=== PATIENT | female | born 1945 | race Caucasian/White ===

== ENCOUNTER 2024-12-30 13:44 | Inpatient (IN) ==
--- NOTE | 2024-12-30 14:34 | Emergency Department Note ---
History of Present Illness General Chief complaint: Illness Stated complaint: FLU, MUSCLE WEAKNESS Time Seen by Provider: 12/30/24 14:20 History of Present Illness Provider complaint: Weakness Maximum Pain Intensity: 10 79-year-old female presents emergency department for weakness. Patient reports she has been having cough and fatigue for the last week. Patient states she was diagnosed with influenza and a UTI 1 week ago. Patient does report taking Keflex for UTI. She states since Saturday she has been having increasing weakness and myalgias. Patient is on Eliquis for history of a pulmonary embolus. No falls or traumas. Home Medications Medication Instructions Recorded Confirmed Type apixaban 5 mg tablet (Eliquis) 5 mg PO BID 12/30/24 12/30/24 History calcium carbonate (Calcium 600) 1,200 mg PO DAILY 12/30/24 12/30/24 History levothyroxine 88 mcg tablet 88 mcg PO QAM 12/30/24 12/30/24 History Allergies Allergy/AdvReac Type Severity Reaction Status Date / Time amoxicillin Allergy Unverified 12/25/23 14:44 Past Med/Surg History Problem List (Updated 12/30/24 @ 17:25 by Ben Simmons MD) Elevated troponin (Acute) Rhabdomyolysis (Acute) Sepsis (Acute) Osteoarthritis of carpometacarpal (CMC) joint of right thumb Medical History (Updated 12/30/24 @ 17:25 by Ben Simmons MD) Hypothyroid Pulmonary embolus Social History Smoking Status: Former smoker Preferred Language: Estonian Feels Safe at Home: Yes Physical Exam Vital Signs Vital Signs - 24 hr 12/30/24 14:01 12/30/24 14:48 12/30/24 14:48 Temperature 36.6 C Temperature Source Temporal Artery Scan Pulse Rate 80 78 Pulse Rate [Apical] 80 Pulse Rhythm [Apical] Pulse Strength [Apical] Respiratory Rate 18 16 18 Respiratory Effort / Characteristics Non-Labored Spontaneous Respiratory Depth Normal Respiratory Pattern Regular Blood Pressure 133/83 Blood Pressure [Right Arm] 120/74 Blood Pressure Mean 99 Blood Pressure Mean [Right Arm] 89 Blood Pressure Position [Right Arm] Pulse Oximetry 98 95 95 Oxygen Delivery Method Room Air Room Air Room Air Sepsis Recent Fever Within 48 Hours No Sepsis New/Unexplained Change in Mental Status N/A Sepsis Action Taken by Nursing No Action Required 12/30/24 14:49 12/30/24 15:49 12/30/24 16:00 Temperature Temperature Source Pulse Rate Pulse Rate [Apical] 80 70 64 Pulse Rhythm [Apical] Regular Pulse Strength [Apical] Normal Respiratory Rate 16 23 15 Respiratory Effort / Characteristics Non-Labored Spontaneous Respiratory Depth Normal Respiratory Pattern Regular Blood Pressure Blood Pressure [Right Arm] 169/91 H 145/84 H Blood Pressure Mean Blood Pressure Mean [Right Arm] 117 104 Blood Pressure Position [Right Arm] Lying Pulse Oximetry 95 97 95 Oxygen Delivery Method Room Air Room Air Sepsis Recent Fever Within 48 Hours Sepsis New/Unexplained Change in Mental Status Sepsis Action Taken by Nursing 12/30/24 16:15 12/30/24 16:22 12/30/24 16:30 Temperature Temperature Source Pulse Rate 60 Pulse Rate [Apical] 64 64 Pulse Rhythm [Apical] Regular Regular Pulse Strength [Apical] Normal Normal Respiratory Rate 15 15 Respiratory Effort / Characteristics Non-Labored Spontaneous Non-Labored Spontaneous Respiratory Depth Normal Normal Respiratory Pattern Regular Regular Blood Pressure Blood Pressure [Right Arm] 145/84 H 145/84 H Blood Pressure Mean Blood Pressure Mean [Right Arm] 104 104 Blood Pressure Position [Right Arm] Lying Lying Pulse Oximetry 95 95 Oxygen Delivery Method Room Air Sepsis Recent Fever Within 48 Hours Sepsis New/Unexplained Change in Mental Status Sepsis Action Taken by Nursing 12/30/24 16:45 Temperature Temperature Source Pulse Rate Pulse Rate [Apical] 63 Pulse Rhythm [Apical] Regular Pulse Strength [Apical] Normal Respiratory Rate 23 Respiratory Effort / Characteristics Non-Labored Spontaneous Respiratory Depth Normal Respiratory Pattern Regular Blood Pressure Blood Pressure [Right Arm] 158/77 H Blood Pressure Mean Blood Pressure Mean [Right Arm] 104 Blood Pressure Position [Right Arm] Lying Pulse Oximetry 96 Oxygen Delivery Method Room Air Sepsis Recent Fever Within 48 Hours Sepsis New/Unexplained Change in Mental Status Sepsis Action Taken by Nursing Physical Exam GENERAL: oriented to person, place, and time. appears well-developed and well- nourished. HENT: Exam performed. - Head: Normocephalic and atraumatic. EYES: Conjunctivae and EOM are normal. Right eye exhibits no discharge. Left eye exhibits no discharge. No scleral icterus. NECK: Normal range of motion. Neck supple. No JVD present. CV: Normal rate, regular rhythm, normal heart sounds and intact distal pulses. There is no peripheral edema. Palpable radial pulses bue. PULM/CHEST: Effort normal and breath sounds normal. No respiratory distress. No stridor. no wheezes. no rales. ABD: The abdomen is soft. There is no tenderness. NEURO: Motor and sensation grossly intact. SKIN: Skin is warm and dry. He is not diaphoretic. PSYCH: normal mood and affect. Behavior is normal. Judgment and thought content normal. Course Course 1420: The patient was evaluated in room D3A. A complete history and physical exam was performed Cardiac monitoring: An order was placed for continuous cardiac monitoring. The monitor shows a rate of 80 with sinus rhythm interpreted by dc 1535: Patient's lactic acid 3.9. Blood pressure stable. Patient be given total of 2 L normal saline bolus to meet the 30 cc/kg fluid requirement. 1600: Vital signs stable. White blood cell count 11.36. Procalcitonin 0.11. Creatinine kinase 3268. High-sensitivity troponin 519.3. Urinalysis unremarkable. Patient will be treated with broad-spectrum antibiotics at the off chance that there is some underlying bacterial infection. Vancomycin and cefepime ordered for the patient. [facility]. Administered Medications Vancomycin HCl 1,250 mg/ (Sodium Chloride) 525 mls @ 200 mls/hr IV NOW ONE Stop: 12/30/24 18:39 Last Admin: 12/30/24 17:04 Dose: 200 mls/hr Documented By: shereen Discontinued Medications Sodium Chloride (Nss) 1,000 mls @ 999 mls/hr IV .Q1H1M VLADIMIR Stop: 12/30/24 15:45 Last Infusion: 12/30/24 15:45 Dose: Infused Documented By: Admin: 12/30/24 14:52 Dose: 999 mls/hr Documented By: GAIL Sodium Chloride (Nss) 1,000 mls @ 999 mls/hr IV .Q1H1M ONE Stop: 12/30/24 16:35 Last Admin: 12/30/24 15:50 Dose: 999 mls/hr Documented By: RADHA Cefepime HCl (Maxipime 2000mg) 2,000 mg in 20 mls @ 5 mls/min IV NOW STA; Protocol Stop: 12/30/24 16:05 Last Admin: 12/30/24 16:32 Dose: 5 mls/min Documented By: shereen Critical Care Time Critical Care Time: Yes Total Critical Care Time: 52 I have personally spent greater than 52 minutes of critical care time in the direct management of this patient. This includes bedside care, interpretation of diagnostic studies, and testing, discussion with consultants, patient, and family members, and other required patient management activities. This 52 minutes is in excess of all separately billable procedures. Medical Decision Making Laboratory Data Attestation: I reviewed the patient's lab results. 12/30/24 14:38 12/30/24 14:38 Lab Results 12/30/24 12/30/24 12/30/24 Range/Units 14:38 15:50 16:25 WBC 11.36 H (4.8-10.8) K/ul RBC 4.78 (4.20-5.40) M/uL Hgb 14.3 (12.0-16.0) g/dl Hct 43.8 (37.0-47.0) % MCV 91.6 (80.0-100.0) fL MCH 29.9 (25.0-34.0) pg MCHC 32.6 (32.0-36.0) g/dL RDW Std Deviation 50.9 H (36.4-46.3) fL RDW Coeff of Evie 15.0 H (11.5-14.5) % Plt Count 258 (130-400) K/uL MPV 10.6 (9.4-12.4) fL Immature Gran % (Auto) 0.4 % Neut % (Auto) 72.4 % Lymph % (Auto) 18.5 % Drew % (Auto) 8.2 % Eos % (Auto) 0.4 % Baso % (Auto) 0.1 % Neut # (Auto) 8.23 H (1.40-6.50) K/uL Lymph # (Auto) 2.10 (1.20-3.40) K/uL Drew # (Auto) 0.93 H (0.11-0.59) K/uL Eos # (Auto) 0.04 (0.00-0.50) K/uL Baso # (Auto) 0.01 (0.00-0.20) K/uL Immature Gran # (Auto) 0.05 (0.01-0.20) K/uL PT 11.5 (9.0-12.0) Seconds INR 1.1 (0.9-1.1) APTT 27 (21-31) Seconds PTT Ratio 1.0 VBG pH 7.36 (7.36-7.41) VBG pCO2 44 (38-50) mmHg VBG pO2 34 mmHg VBG HCO3 25 mmol/L VBG O2 Saturation < 60.0 % VBG Base Excess -0.8 mEq/L Sodium 137 (136-145) mmol/L Potassium 3.8 (3.5-5.1) mmol/L Chloride 101 (98-107) mmol/L Carbon Dioxide 24 (21-32) mmol/L Anion Gap 12 H (3-11) BUN 32 H (6-23) mg/dl Creatinine 0.55 L (0.6-1.2) mg/dl Est Cr Clr Drug Dosing 68.6 ml/min eGFR 94.35 BUN/Creatinine Ratio 58.2 H (10-20) Glucose 91 (70-99(Fasting)) mg/dl Lactate 3.9 H* 3.1 H* (0.4-2.0) mmol/L Calcium 8.9 (8.6-10.3) mg/dl Magnesium 1.8 (1.7-2.4) mg/dl Total Bilirubin 0.7 (0.2-1.0) mg/dl Direct Bilirubin 0.1 (0-0.2) mg/dl AST 122 H (13-39) U/L ALT 75 H (7-52) U/L Alkaline Phosphatase 79 (34-104) U/L Total Creatine Kinase 3268 H (26-192) U/L Troponin I High Sens 519.3 H* (0-14) pg/ml Total Protein 7.1 (6.0-8.3) gm/dl Albumin 3.9 (3.4-5.0) gm/dl Procalcitonin 0.11 (0-0.5) ng/ml Urine Color Yellow Urine Appearance Clear (Clear) Urine pH 6.0 (4.5-7.5) Ur Specific Hewitt 1.016 (1.000-1.030) Urine Protein Negative (Negative) Urine Glucose (UA) Negative (Negative) Urine Ketones Negative (Negative) Urine Blood Negative (Negative) Urine Nitrite Negative (Negative) Urine Bilirubin Negative (Negative) Urine Urobilinogen Negative (Negative) Ur Leukocyte Esterase Negative (Negative) Urine Comment Imaging Data Attestation: I personally reviewed and interpreted this imaging study as follows: My Impression: Chest x-ray: Chest x-ray negative. Airway clear. No pneumothorax. No consolidation. No cardiomegaly or cephalization.. No free air under the diaphragm. No fractures of the skeletal structures. Radiologist's Impression: Chest X-Ray 12/30/24 14:33 XR chest 1V portable CLINICAL HISTORY: Sepsis COMPARISON STUDY: None FINDINGS: Heart size and pulmonary vasculature are normal. No consolidation or pleural effusion. No pneumothorax. IMPRESSION: No acute findings. ACT 112: Negative or not required by law. Electronically signed by: Umer Joseph M.D. 12/30/2024 3:[address] 12/30/24 14:34 CT head/brain wo con CLINICAL HISTORY: weakness. TECHNIQUE: Multiple axial CT images of the head were obtained without contrast. A dose lowering technique was utilized adhering to the principles of ALARA. CT DOSE: 547.75 mGy.cm COMPARISON: None FINDINGS: No intracranial hemorrhage seen. No mass effect, midline shift, or hydrocephalus. There are mild chronic small vessel ischemic changes. No skull fracture seen. There is mild mucosal thickening in the ethmoid sinuses. Otherwise the visualized paranasal sinuses and mastoid air cells are clear. IMPRESSION: No acute findings. ACT 112: Negative or not required by law. The above report was generated using voice recognition software. It may contain grammatical, syntax or spelling errors. Electronically signed by: Umer Joseph M.D. 12/30/2024 3:51 PM ECG Data Attestation: I personally reviewed and interpreted this ECG as follows: Rate (beats per minute): 74 Rhythm: + normal sinus ECG Intervals/blocks: + Normal CT and + Normal QT-c ECG ST segments: + Normal ST segments Additional Comments: QRS 70 MDM Narrative 1420: The patient was evaluated in room D3A. A complete history and physical exam was performed Cardiac monitoring: An order was placed for continuous cardiac monitoring. The monitor shows a rate of 80 with sinus rhythm interpreted by me 1535: Patient's lactic acid 3.9. Blood pressure stable. Patient be given total of 2 L normal saline bolus to meet the 30 cc/kg fluid requirement. 1600: Vital signs stable. White blood cell count 11.36. Procalcitonin 0.11. Creatinine kinase 3268. High-sensitivity troponin 519.3. Urinalysis unremarkable. Patient will be treated with broad-spectrum antibiotics at the off chance that there is some underlying bacterial infection. Vancomycin and cefepime ordered for the patient. [facility] Impression & Plan Sepsis, Rhabdomyolysis, Elevated troponin Discharge Plan Visit Data Chief Complaint: Illness Stated Complaint: FLU, MUSCLE WEAKNESS ED Provider: Ben Simmons Discharge Problem: Sepsis, Rhabdomyolysis, Elevated troponin Patient Disposition: Admitted As Inpatient Condition: Serious Forms Stand Alone Forms: My [facility] Prescriptions Prescriptions: No Action Eliquis 5 mg tablet 5 mg PO BID levothyroxine 88 mcg tablet 88 mcg PO QAM calcium carbonate [Calcium 600] 600 mg calcium (1,500 mg) Tablet 1,200 mg PO DAILY Referrals Referrals: PCP,NO [Primary Care Provider] - Discharge Problem: Sepsis Qualifiers: Sepsis type: sepsis due to unspecified organism Sepsis acute organ dysfunction status: unspecified Qualified Code(s): A41.9 - Sepsis, unspecified organism
[2024-12-30] MEDS: SODIUM CHLORIDE 0.9% 1,000 ML IV SCH ×2 (14:52→20:08)
[2024-12-30 14:53] LABS: Base Excess VBG -0.8 mEq/L; HCO3 VBG 25 mmol/L; Oxygen Saturation VBG < 60.0 %; PCO2 VBG 44 mmHg (38-50); PO2 VBG 34 mmHg; pH VBG 7.36 (7.36-7.41)
[2024-12-30 15:10] LABS: Hematocrit (blood only) 43.8 % (37.0-47.0); Hemoglobin 14.3 g/dl (12.0-16.0); Immature Granulocytes # (auto) 0.05 K/uL (0.01-0.20); Immature Granulocytes % (auto) 0.4 %; Mean Corpuscular Hemoglobin 29.9 pg (25.0-34.0); Mean Corpuscular Volume 91.6 fL (80.0-100.0); Platelet Count 258 K/uL (130-400); RDW Standard Deviation 50.9 fL (36.4-46.3); Red Blood Count 4.78 M/uL (4.20-5.40); White Blood Count 11.36 K/ul (4.8-10.8)
--- NOTE | 2024-12-30 15:27 | XRay Report ---
XR chest 1V portable CLINICAL HISTORY: Sepsis COMPARISON STUDY: None FINDINGS: Heart size and pulmonary vasculature are normal. No consolidation or pleural effusion. No p neumothorax. IMPRESSION: No acute findings. ACT 112: Negative or not required by law. Electronically signed by: Umer Josehp M.D. 12/30/2024 3:25 PM
[2024-12-30 15:32] LABS: Anion Gap 12.0 (3-11); Blood Urea Nitrogen 32.0 mg/dl (6-23); Calcium 8.9 mg/dl (8.6-10.3); Carbon Dioxide 24.0 mmol/L (21-32); Chloride 101.0 mmol/L (98-107); Creatinine Clr Calc Pharmacy 68.6 ml/min; Glucose 91.0 mg/dl (70-99(Fasting)); Potassium 3.8 mmol/L (3.5-5.1); Sodium 137.0 mmol/L (136-145)
[2024-12-30 15:45] LABS: INR 1.1 (0.9-1.1); Partial Thromboplastin Time 27 Seconds (21-31); Prothrombin Time 11.5 Seconds (9.0-12.0)
[2024-12-30 15:48] LABS: Alanine Aminotransferase 75.0 U/L (7-52); Albumin Level 3.9 gm/dl (3.4-5.0); Alkaline Phosphatase 79.0 U/L (34-104); Bilirubin,Total 0.7 mg/dl (0.2-1.0); Creatine Kinase 3268.0 U/L (26-192); Magnesium 1.8 mg/dl (1.7-2.4); Total Protein 7.1 gm/dl (6.0-8.3)
[2024-12-30] MEDS: SODIUM CHLORIDE 0.9% 1,000 ML IV ONE (15:50)
--- NOTE | 2024-12-30 15:52 | CT Scan Report ---
CT head/brain wo con CLINICAL HISTORY: weakness. TECHNIQUE: Multiple axial CT images of the head were obtained without contrast. A dose lowering tech nique was utilized adhering to the principles of ALARA. CT DOSE: 547.75 mGy.cm COMPARISON: None FINDINGS: No intracranial hemorrhage seen. No mass effect, midline shift, or hydrocephalus. There are mild chronic small vessel ischemic changes. No skull fracture seen. There is mild mucosal thickening in the ethmoid sinuses. Otherwise the visualized paranasal sinuses and mastoid air cells are clear. IMPRESSION: No acute findings. ACT 112: Negative or not required by law. The above report was generated using voice recognition software. It may contain grammatical, syntax o r spelling errors. Electronically signed by: Umer Joseph M.D. 12/30/2024 3:51 PM
[2024-12-30] MEDS ORDERED: VANCOMYCIN CONSULT ACTIVE PRN (16:02)
[2024-12-30 16:18] LABS: Appearance Urine Clear (Clear); Glucose Urine UA Negative (Negative)
[2024-12-30] MEDS: CEFEPIME 2000MG 2,000 MG/20 ML SYR IV STA (16:32)
[2024-12-30] MEDS: VANCOMYCIN HCL 1,250 MG in SODIUM CHLORIDE 0.9% 500 ML IV ONE (17:04)
[2024-12-30 17:35] LABS: Chlamydia pneumoniae PCR Not Detected (NotDetected); Coronavirus 229E PCR Not Detected (NotDetected); Coronavirus CoV-2 (COVID19)PCR Not Detected (NotDetected); Coronavirus HKU1 PCR Not Detected (NotDetected); Coronavirus NL63 PCR Not Detected (NotDetected); Coronavirus OC43PCR Not Detected (NotDetected); Human Metapneumovirus PCR Not Detected (NotDetected); Influenza A (H3) PCR DETECTED (NotDetected); Parainfluenza Virus 1 PCR Not Detected (NotDetected); Parainfluenza Virus 2 PCR Not Detected (NotDetected); Parainfluenza Virus 3 PCR Not Detected (NotDetected); Parainfluenza Virus 4 PCR Not Detected (NotDetected); Respiratory Syncytial VirusPCR Not Detected (NotDetected); Rhinovirus/Enterovirus PCR Not Detected (NotDetected)
--- NOTE | 2024-12-30 17:55 | History & Physical Report ---
Date of Service December 30, 2024 Assessment & Plan (1) Generalized muscle weakness: (2) Lactic acidosis: (3) Transaminasemia: (4) Elevated troponin level not due myocardial infarction: (5) Elevated CPK: Plan In summary this is a 79-year-old female who presents with generalized weakness with a recent viral infection and acute urinary tract infection, the latter of which was treated with an adequate antibiotic course; the patient's presentation is concerning for multiple medical diagnoses that require further testing for full determination as discussed below The patient's laboratory assessment is concerning for myositis with a elevated CPK of 3000 turns 68, troponin 519.3 without associated cardiac complaints or anginal equivalents; furthermore they have an elevated AST and ALT without additional hepatic dysfunction; lactic acid 3.7 downtrending with fluid resuscitation to 3.1; they do have a normal procalcitonin measure and no evidence of infection at this time based on physical exam and imaging that has been obtained; suspect primarily this is likely myositis status post influenza A however given their travel to the [facility] as well as [facility] in the past 2 months, with recent constitutional symptoms that led to the diagnosis of influenza A, we will pursue additional diagnostic testing for both malaria and Lyme disease Continue lactated ringer at 150 mL/h Follow daily CMP Peripheral smear and Lyme titer pending Admission and Anticipated Discharge Date Admission Date: 12/30/2024 Anticipated date of discharge: 12/31/24 History of Present Illness Chief Complaint: General malaise Primary Care Provider: SHENG PCP Ms. 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 The patiently recently returned from a car trip to [place], [place], on 12/27. During the patient's travel they were diagnosed with a urinary tract infection as well as influenza A. They are prescribed a 7-day course of Keflex, and did not require any pharmacologic intervention regarding their influenza A. Additionally, the patient has travel to [facility] in October and November for an extended safari; the patient and their spouse were taking prophylactic treatment for malaria and other endemic conditions, they deny any identifiable exposures or insect bites during this trip. The patient describes on 12/27 General Malaise and achiness that began in the patient's shoulders and upper extremities bilaterally which has progressed to involve most of the upper and lower extremities bilaterally. She denies any new joint effusions, bruising, recent falls or other injuries. They have not had any measurable fevers at home though did have a subjective fever in the later portion of the week prior to presentation. They do have a known ill exposure having attended a recent college football game with their grandchildren, which led to an influenza exposure. They feel generally weak, but deny any asymmetry in their weakness, sensory changes, bowel or bladder incontinence, appetite changes, anorexia, nausea, vomiting. Allergies Allergy/AdvReac Type Severity Reaction Status Date / Time amoxicillin Allergy Unverified 12/25/23 14:44 Home Medications Medication Instructions Recorded Confirmed Type apixaban 5 mg tablet (Eliquis) 5 mg PO BID 12/30/24 12/30/24 History calcium carbonate (Calcium 600) 1,200 mg PO DAILY 12/30/24 12/30/24 History levothyroxine 88 mcg tablet 88 mcg PO QAM 12/30/24 12/30/24 History Past Med/Surg History Problem List (Updated 12/30/24 @ 18:04 by Shahbaz Pierce DO) Generalized muscle weakness Lactic acidosis Transaminasemia Elevated troponin level not due myocardial infarction Elevated CPK Osteoarthritis of carpometacarpal (CMC) joint of right thumb (Chronic) Medical History (Updated 12/30/24 @ 18:04 by Shahbaz Pierce DO) Pulmonary embolus Social History Smoking Status: Former smoker Preferred Language: Egyptian Feels Safe at Home: Yes Review of Systems Review of Systems: Review of constitutional, cardiovascular, pulmonary, musculoskeletal, genitourinary, gastrointestinal systems was unremarkable other than as detailed in the HPI above Physical Exam Physical Exam: General: Adult female in no acute distress Vital Signs: Reviewed HEENT: Tacky mucous membranes; extraocular motion intact, pupils equally round reactive to light Pulmonary: Clear to auscultation bilaterally with symmetric unrestricted chest wall excursion Cardiovascular: Regular rate and rhythm without murmurs, rubs, or gallops; S1 and S2 normal; bilateral radial and posterior tibial pulse 2+, 1+ pitting edema distal to mid leg bilaterally Gastrointestinal: Soft, nontender Musculoskeletal: Globally diminished strength of the upper and lower extremities -4/5 without asymmetry Neurologic: Cranial nerves II through XII grossly intact; no discernible focal weakness nor paresthesias; triceps, brachioradialis, patellar reflexes +2/4 bilaterally Skin: Multiple upper and lower extremity purpura secondary to contact bruising Results & Data Results & Data Vital Signs (Past 12 Hours) Vital Signs Temp Pulse Pulse Resp BP BP Pulse Ox 12/30/24 16:45 63 23 158/77 H 96 12/30/24 16:30 64 15 145/84 H 95 12/30/24 16:22 60 12/30/24 16:15 64 15 145/84 H 95 12/30/24 16:00 64 15 145/84 H 95 12/30/24 15:49 70 23 169/91 H 97 12/30/24 14:49 80 16 95 12/30/24 14:48 80 18 120/74 95 12/30/24 14:48 78 16 95 12/30/24 14:01 36.6 C 80 18 133/83 98 O2 Del Method 12/30/24 16:45 Room Air 12/30/24 16:30 Room Air 12/30/24 16:22 12/30/24 16:15 12/30/24 16:00 Room Air 12/30/24 15:49 Room Air 12/30/24 14:49 12/30/24 14:48 Room Air 12/30/24 14:48 Room Air 12/30/24 14:01 Room Air Laboratory Results White blood cell count 11.6, elevated red blood cell distribution with without associated anemia; elevated BUN without acute renal dysfunction measuring 32; lactic acid initially 3.7, downtrending 3.1; CPK 3268; troponin 519.3 downtrending to 507; AST 122, ALT 75; VBG 7.3 ; urinalysis was unremarkable Diagnostic Findings CT head and chest film were reviewed, without acute abnormalities ECG Additional Comments: No acute ischemic changes; poor R wave progression in the precordial leads, no prior test for comparison Code Status & VTE Plan Code Status DNR/DNI VTE Prophylaxis Plan VTE Prophylaxis will be ordered: No Reason for no VTE drug order: Contraindicated PG Care Time/CCT Total # of Minutes Spent Total Time Spent with Patient: Total time spent is greater than 50% in coordination of care (as documented) at patient's floor/unit and/or counseling patient: Coding Level of Care Code 61636 INT INP/OBS CARE MIN Diagnoses Generalized muscle weakness M62.81 Lactic acidosis E87.20 Transaminasemia R74.01 Elevated troponin level not due myocardial infarction R79.89 Elevated CPK R74.8
[2024-12-30] MEDS: LACTATED RINGER'S 1,000 ML IV SCH (22:10)
[2024-12-30 23:18] LABS: Thyroid Stimulating Hormone 2.498 uIu/ml (0.300-4.500)
[2024-12-30] MEDS: APIXABAN 5 MG TABLET PO SCH (23:35)
[2024-12-31] MEDS: LEVOTHYROXINE SODIUM 88 MCG TABLET PO SCH (06:34)
--- NOTE | 2024-12-31 07:24 | Hospitalist Progress Note ---
Date of Service December 31, 2024 Assessment & Plan (1) Generalized muscle weakness: (2) Lactic acidosis: (3) Transaminasemia: (4) Elevated troponin level not due myocardial infarction: (5) Elevated CPK: Plan In summary this is a 79-year-old female who presents with generalized weakness with a recent viral infection and acute urinary tract infection, the latter of which was treated with an adequate antibiotic course; the patient's presentation is concerning for multiple medical diagnoses that require further testing for full determination as discussed below The patient's laboratory assessment is concerning for myositis with an initially elevated CPK of 3068, persistent troponin elevation without associated cardiac complaints or anginal equivalents; furthermore they have an elevated AST and ALT without additional hepatic dysfunction; initial procalcitonin measure was unremarkable and they are without clinical evidence of infection at this time based on physical exam and imaging that has been obtained; suspect primarily this is likely myositis status post influenza A, however given their travel to the [facility] as well as [facility] in the past 2 months, with recent constitutional symptoms that led to the diagnosis of influenza A, we pursued additional diagnostic testing for both malaria and Lyme disease Follow daily CMP, Pending repeat CPK with isoenzyme measure Pending TTE Initial peripheral smear is without evidence of parasites Lyme disease screen is negative Blood culture obtained in the emergency department has 1 bottle yielding gram- positive bacilli, suspect this is most likely a contaminant given the lack of evidence for a source of infection or bacteremia however we will continue to monitor her clinical status closely Admission and Anticipated Discharge Date Admission Date: December 30, 2024 Anticipated date of discharge: 01/01/25 Subjective Ms. 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 The patiently recently returned from a car trip to [place], [place], on 12/27. During the patient's travel they were diagnosed with a urinary tract infection as well as influenza A. They are prescribed a 7-day course of Keflex, and did not require any pharmacologic intervention regarding their influenza A. Additionally, the patient has travel to [facility] in October and November for an extended safari; the patient and their spouse were taking prophylactic treatment for malaria and other endemic conditions, they deny any identifiable exposures or insect bites during this trip. No acute overnight events; patient feels much improved this morning and with robust appetite. Denies any fevers, chills, nausea, vomiting, new arthralgias or myalgias. Review of Systems Review of Systems: Review of constitutional, cardiovascular, pulmonary, musculoskeletal, genitourinary, gastrointestinal systems was unremarkable other than detailed above Physical Exam Physical Exam: General: Adult female in no acute distress Vital Signs: Reviewed HEENT: Moist mucous membranes; extraocular motion intact, pupils equally round reactive to light Pulmonary: Clear to auscultation bilaterally with symmetric unrestricted chest wall excursion Cardiovascular: Regular rate and rhythm without murmurs, rubs, or gallops; S1 and S2 normal; bilateral radial and posterior tibial pulse 2+, 1+ pitting edema distal to mid leg bilaterally Gastrointestinal: Soft, nontender Musculoskeletal: Globally diminished strength of the upper and lower extremities -4/5 without asymmetry Neurologic: Cranial nerves II through XII grossly intact; no discernible focal weakness nor paresthesias Skin: Multiple upper and lower extremity purpura secondary to contact bruising Results & Data Results & Data Vital Signs (Past 12 Hours) Vital Signs Temp Pulse Pulse Pulse Resp BP BP 12/30/24 22:05 12/30/24 22:05 36.9 C 80 18 160/82 H 12/30/24 21:27 67 23 162/80 H 12/30/24 20:00 72 19 131/79 Pulse Ox O2 Del Method 12/30/24 22:05 Room Air 12/30/24 22:05 95 Room Air 12/30/24 21:27 97 Room Air 12/30/24 20:00 97 Room Air Laboratory Results Downtrending leukocytosis 6.65 from 11.3; downtrending hemoglobin and platelets as well, similar to white blood cell count; anion gap is closed Downtrending transaminases, AST 84 from 122, ALT 58 from 75 Troponin trend 450, 549, 584, 507, 519; pending repeat creatinine kinase with isoenzyme measure TSH 2.49 Lyme disease screening negative Initial peripheral smear without evidence of blood parasites 1 bottle from blood cultures drawn on 12/30 yielded gram-positive bacilli Diagnostic Findings TTE pending PG Care Time/CCT Total # of Minutes Spent Total Time Spent with Patient: Total time spent is greater than 50% in coordination of care (as documented) at patient's floor/unit and/or counseling patient: Coding Level of Care Code 32593 SUB INP/OBS CARE 235MIN Diagnoses Generalized muscle weakness M62.81 Lactic acidosis E87.20 Transaminasemia R74.01 Elevated troponin level not due myocardial infarction R79.89 Elevated CPK R74.8
[2024-12-31 07:36] LABS: A calco-baum cmplx NotReported Not Detected (NotDetected); Bact fragilis Not Reported Not Detected (NotDetected); Blood Culture Id Panel PCR Panel Negative (NotDetected); C auris Not Reported Not Detected (NotDetected); Calbicans Not Reported Not Detected (NotDetected); Candida glabrata Not Reported Not Detected (NotDetected); Candida krusei Not Reported Not Detected (NotDetected); Cneoformans/gatti Not Reported Not Detected (NotDetected); Cparapsilosis Not Reported Not Detected (NotDetected); Ctropicalis Not Reported Not Detected (NotDetected); E cloacae compx Not Reported Not Detected (NotDetected); Efaecalis Not Reported Not Detected (NotDetected); Efaecium Not Reported Not Detected (NotDetected); Enterobacterales Not Reported Not Detected (NotDetected); Escherichia coli Not Reported Not Detected (NotDetected); H influenzae Not Reported Not Detected (NotDetected); K aerogenes Not Reported Not Detected (NotDetected); Koxytoca Not Reported Not Detected (NotDetected); Kpneumoniae grp Not Reported Not Detected (NotDetected); Lmonocyt Not Reported Not Detected (NotDetected); N meningitidis Not Reported Not Detected (NotDetected); P aeruginosa Not Reported Not Detected (NotDetected); Proteus spp Not Reported Not Detected (NotDetected); Salmonella spp Not Reported Not Detected (NotDetected); Staph lugdunensis Not Reported Not Detected (NotDetected); Staph spp. Not Reported Not Detected (NotDetected); Staphaureus Not Reported Not Detected (NotDetected); Staphepi Not Reported Not Detected (NotDetected); Stenmaltophilia Not Reported Not Detected (NotDetected); Strep agal(GrpB) Not Reported Not Detected (NotDetected); Strep pneum Not Reported Not Detected (NotDetected); Strep pyog (GrpA) Not Reported Not Detected (NotDetected); Strep spp Not Reported Not Detected (NotDetected)
[2024-12-31 08:46] LABS: Alanine Aminotransferase 58.0 U/L (7-52); Albumin Globulin Ratio 1.2 (0.9-2); Albumin Level 2.8 gm/dl (3.4-5.0); Alkaline Phosphatase 57.0 U/L (34-104); Anion Gap 5.0 (3-11); Bilirubin,Total 0.5 mg/dl (0.2-1.0); Blood Urea Nitrogen 18.0 mg/dl (6-23); Calcium 7.8 mg/dl (8.6-10.3); Carbon Dioxide 23.0 mmol/L (21-32); Chloride 115.0 mmol/L (98-107); Creatinine Clr Calc Pharmacy 78.6 ml/min; Globulin 2.3 gm/dl (2.5-4.0); Glucose 87.0 mg/dl (70-99(Fasting)); Potassium 3.7 mmol/L (3.5-5.1); Sodium 143.0 mmol/L (136-145); Total Protein 5.1 gm/dl (6.0-8.3)
[2024-12-31 08:48] LABS: Hematocrit (blood only) 35.0 % (37.0-47.0); Hemoglobin 11.0 g/dl (12.0-16.0); Mean Corpuscular Hemoglobin 29.0 pg (25.0-34.0); Mean Corpuscular Volume 92.3 fL (80.0-100.0); Platelet Count 196 K/uL (130-400); RDW Standard Deviation 51.6 fL (36.4-46.3); Red Blood Count 3.79 M/uL (4.20-5.40); White Blood Count 6.65 K/ul (4.8-10.8)
[2024-12-31] MEDS: CALCIUM CARBONATE 1250MG TAB PO SCH (12:29)
--- NOTE | 2024-12-31 17:25 | XCELERA ---
[id number]
[2025-01-01 06:55] LABS: Hematocrit (blood only) 35.8 % (37.0-47.0); Hemoglobin 11.2 g/dl (12.0-16.0); Mean Corpuscular Hemoglobin 28.8 pg (25.0-34.0); Mean Corpuscular Volume 92.0 fL (80.0-100.0); Platelet Count 214 K/uL (130-400); RDW Standard Deviation 51.6 fL (36.4-46.3); Red Blood Count 3.89 M/uL (4.20-5.40); White Blood Count 7.73 K/ul (4.8-10.8)
[2025-01-01 07:21] LABS: Alanine Aminotransferase 60.0 U/L (7-52); Albumin Globulin Ratio 1.3 (0.9-2); Albumin Level 3.1 gm/dl (3.4-5.0); Alkaline Phosphatase 60.0 U/L (34-104); Anion Gap 5.0 (3-11); Bilirubin,Total 0.4 mg/dl (0.2-1.0); Blood Urea Nitrogen 19.0 mg/dl (6-23); Calcium 8.2 mg/dl (8.6-10.3); Carbon Dioxide 28.0 mmol/L (21-32); Chloride 111.0 mmol/L (98-107); Creatinine Clr Calc Pharmacy 58.9 ml/min; Globulin 2.4 gm/dl (2.5-4.0); Glucose 94.0 mg/dl (70-99(Fasting)); Potassium 3.8 mmol/L (3.5-5.1); Sodium 144.0 mmol/L (136-145); Total Protein 5.5 gm/dl (6.0-8.3)
[2025-01-01 07:55] VITALS: BP 118/69; RESP 16; TEMP 98; O2SAT 96
[2025-01-01 11:23] VITALS: PULSE 72
--- NOTE | 2025-01-02 15:24 | Discharge Summary ---
Discharge Summary Date of Service January 02, 2025 Principal Dx & Hospital Course #1 = Principal Diagnosis (1) Generalized muscle weakness: (2) Lactic acidosis: (3) Transaminasemia: (4) Elevated troponin level not due myocardial infarction: (5) Myositis: (6) Non-ischemic myocardial injury (non-traumatic): Plan In summary this is a 79-year-old female who presents with generalized weakness with a recent viral infection and acute urinary tract infection, the latter of which was treated with an adequate antibiotic course; the patient's presentation is concerning for multiple medical diagnoses that require further testing for full determination as discussed below #Post-viral myositis in the setting of Influenza A The patient's laboratory assessment is concerning for myositis with an initially elevated CPK of 3068, persistent troponin elevation without associated cardiac complaints or anginal equivalents; furthermore they have an elevated AST and ALT without additional hepatic dysfunction; initial procalcitonin measure was unremarkable and they are without clinical evidence of infection at this time based on physical exam and imaging that has been obtained; suspect primarily this is likely myositis status post influenza A, however given their travel to the [facility] as well as [facility] in the past 2 months, with recent constitutional symptoms that led to the diagnosis of influenza A, we pursued additional diagnostic testing for both malaria and Lyme disease Peripheral smear is without evidence of parasites Lyme disease screen is negative Blood culture obtained in the emergency department has 1 bottle yielding gram- positive bacilli, suspect this is a contaminant given the lack of evidence for a source of infection or bacteremia Admission HPI Per Admitting Provider Ms. 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 The patiently recently returned from a car trip to [place], [place], on 12/27. During the patient's travel they were diagnosed with a urinary tract infection as well as influenza A. They are prescribed a 7-day course of Keflex, and did not require any pharmacologic intervention regarding their influenza A. Additionally, the patient has travel to [facility] in October and November for an extended safari; the patient and their spouse were taking prophylactic treatment for malaria and other endemic conditions, they deny any identifiable exposures or insect bites during this trip. The patient describes on 12/27 General Malaise and achiness that began in the patient's shoulders and upper extremities bilaterally which has progressed to involve most of the upper and lower extremities bilaterally. She denies any new joint effusions, bruising, recent falls or other injuries. They have not had any measurable fevers at home though did have a subjective fever in the later portion of the week prior to presentation. They do have a known ill exposure having attended a recent college football game with their grandchildren, which led to an influenza exposure. They feel generally weak, but deny any asymmetry in their weakness, sensory changes, bowel or bladder incontinence, appetite changes, anorexia, nausea, vomiting. Discharge Exam General: Adult female in no acute distress Vital Signs: Reviewed HEENT: Moist mucous membranes; extraocular motion intact, pupils equally round reactive to light Pulmonary: Clear to auscultation bilaterally with symmetric unrestricted chest wall excursion Cardiovascular: Regular rate and rhythm without murmurs, rubs, or gallops; S1 and S2 normal; bilateral radial and posterior tibial pulse 2+, trace pitting edema distal to mid leg bilaterally Gastrointestinal: Soft, nontender Neurologic: Cranial nerves II through XII grossly intact; no discernible focal weakness nor paresthesias Skin: Multiple upper and lower extremity purpura secondary to contact bruising Discharge Plan Discharge Items Patient Disposition: Home - Self-Care Reason For Visit: TYPE II MYOCARDIAL INFARCTION Discharge Diagnosis: 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 Your initial laboratory testing was concerning for a troponin elevation in the range of 500-600, elevated CPK greater than 3000, elevated transaminases which is a measure of liver function; in summary, however in the setting of her clinical presentation this is most consistent with a diffuse myositis which can occur after some viral syndromes. Given your recent travel to several areas of endemic infections that can cause similar presentations including malaria and Lyme disease, these were assessed as well but did not reveal any significant findings. Blood cultures were obtained by the emergency department prior to your admission, 1 bottle of 2 did yield gram-positive bacilli however this is most likely contaminant given your clinical improvement without any antibiotic treatment. Thank you for choosing [facility] as your healthcare provider. Pending Studies at Discharge: No Stand-Alone Forms: My [facility] Medications and DC Order Prescriptions: Continued Eliquis 5 mg tablet 5 mg PO BID levothyroxine 88 mcg tablet 88 mcg PO QAM calcium carbonate [Calcium 600] 600 mg calcium (1,500 mg) Tablet 1,200 mg PO DAILY Discharge Orders: Discharge Order (Routine); Ordered 01/01/25 Ordered By: Shahbaz Pierce Admission Data Admit Date/Time: 12/31/24 11:19 Attending Provider: Shahbaz Pierce Admit Provider: Shahbaz Pierce Primary Care Provider: Janki Richardson Other Interventions: Discharge Summary Assessment (RN) Last Done: 01/01/25 11:22 Hospital Stay Data Diagnostic Imagining Performed 12/30/24 14:34 CT head/brain wo con Stat Pending Results Patient Have Any Pending Studies at Discharge: No Discharge Instructions Given to Patient (Per Discharging Provider) You were admitted to [facility] for diffuse myositis secondary to influenza A. Your initial laboratory testing was concerning for a troponin elevation in the range of 500-600, elevated CPK greater than 3000, elevated transaminases which is a measure of liver function; in summary, however in the setting of her clinical presentation this is most consistent with a diffuse myositis which can occur after some viral syndromes. Given your recent travel to several areas of endemic infections that can cause similar presentations including malaria and Lyme disease, these were assessed as well but did not reveal any significant findings. Blood cultures were obtained by the emergency department prior to your admission, 1 bottle of 2 did yield gram-positive bacilli however this is most likely contaminant given your clinical improvement without any antibiotic treatment. Thank you for choosing [facility] as your healthcare provider. Total Time Total Time Spent Total Time Spent (In Minutes): I personally spent 45 minutes in coordination of patient's discharge including discussion of the patient's laboratory and diagnostic testing results with the patient and their spouse, physical exam, and coordination of establishing with primary care in the local area Coding Level of Care Code 61494 INP/OBS DISCH >30 MIN Diagnoses Generalized muscle weakness M62.81 Lactic acidosis E87.20 Transaminasemia R74.01 Elevated troponin level not due myocardial infarction R79.89 Myositis M60.9 Non-ischemic myocardial injury (non-traumatic) I5A
--- NOTE | 2025-01-03 21:25 | Electrocardiogram Report ---
Test Reason : Blood Pressure : */* mmHG Vent. Rate : 74 BPM Atrial Rate : 74 BPM P-R Int : 162 ms QRS Dur : 70 ms QT Int : 370 ms P-R-T Axes : -19 -4 -21 degrees QTcB Int : 410 ms Normal sinus rhythm Possible Inferior infarct , age undetermined Anterior infarct Abnormal ECG No previous ECGs available Confirmed by Ney Bustillo ([id number]) on 01/03/2025 9:24:52 PM Referred By: REFERRED SELF Confirmed By: Ney Bustillo
--- NOTE | 2025-01-03 21:26 | Electrocardiogram Report ---
Test Reason : Blood Pressure : */* mmHG Vent. Rate : 59 BPM Atrial Rate : 59 BPM P-R Int : 180 ms QRS Dur : 82 ms QT Int : 376 ms P-R-T Axes : 70 82 27 degrees QTcB Int : 372 ms Sinus bradycardia Low voltage QRS Anterior infarct (cited on or before 30-Dec-2024) Abnormal ECG When compared with ECG of 30-Dec-2024 14:49, Questionable change in initial forces of Inferior leads Confirmed by Ney Bustillo ([id number]) on 01/03/2025 9:26:07 PM Referred By: REFERRED SELF Confirmed By: Ney Bustillo
[2025-01-04 23:18] LABS: CK-BB None Detected (None Detected); CK-MB 3 % (<5); CK-MM 97 % (95-100)
--- NOTE | 2025-01-06 13:03 | Pharmacy Report ---
ED Pharmacist Culture FollowUP - Culture Follow Up Note Date of Service: January 06, 2025 Notes:: Blood culture (+) Bacillus megaterium in 04/11. Pt was admitted to hospitalist service and noted to be suspected contaminant. Hospitalist service notified and aware - no further ED action.
== END 2025-01-01 12:27 | disposition home or self-care (01) | DRG 556 ==
LOC: ED 13:44 → 3W 13:44